=== PATIENT | female | born 1955 | race African-American/Black ===

== ENCOUNTER 2021-10-21 21:42 | Inpatient (IN) ==
[2021-10-21] MEDS ORDERED: Iopamidol - 370 500 ML MLS IVP ONE (22:56)
[2021-10-21] MEDS ORDERED: Morphine Sulfate 2 MG/ML SYRINGE IVP ONE (23:16)
[2021-10-21] MEDS ORDERED: Ondansetron 4 MG/2 ML VIAL IVP ONE (23:16)
[2021-10-21] MEDS ORDERED: 0.9 % Sodium Chloride 1,000 ML IV ONE (23:16)
[2021-10-22 00:16] LABS: Basophils # 0.1 K/mcL (0.0-0.2); Basophils % 0.8 %; Eosinophils # 0.3 K/mcL (0.0-0.6); Eosinophils % 2.2 %; Hematocrit 47.7 % (35.3-44.9); Hemoglobin 15.3 g/dL (11.5-15.4); Immature Granulocytes % 0.6 % (0-4); Lymphocytes # 2.5 K/mcL (0.6-4.6); Lymphocytes % 20.4 %; Mean Corpuscular HGB Conc 32.1 g/dL (31.6-35.5); Mean Corpuscular Hemoglobin 27.9 pg (28.0-33.3); Mean Platelet Volume 9.4 fL (9.4-12.4); Monocytes # 0.9 K/mcL (0.0-1.3); Monocytes % 7.2 %; Neutrophils # 8.3 K/mcL (1.6-8.9); Platelet Count 295 K/mcL (140-400); Red Blood Count 5.48 M/mcL (3.82-4.97); Red Cell Distribution Width 15.6 % (11.5-14.5); Segmented Neutrophils % 68.8 %
[2021-10-22 00:23] LABS: Albumin 4.1 g/dL (3.5-5.7); Bilirubin,Total 0.4 mg/dL (0.3-1.0); Calcium 9.4 mg/dL (8.6-10.3); Globulin 4.1 g/dL (2.4-3.5); Potassium 3.5 mEq/L (3.5-5.1); Total Protein 8.2 g/dL (6.4-8.9)
[2021-10-22 00:57] LABS: Bilirubin,Urine Negative (Negative); Blood,Urine Negative (Negative); Clarity,Urine Clear (Clear); Color,Urine Light-Yellow (Yellow); Glucose,Urine (UA) Normal (Normal); Ketones,Urine Negative (Negative); Leukocyte Esterase,Urine Negative (Negative); Nitrite,Urine Negative (Negative); PH,Urine 6.5 pH Units (5.0-8.0); Protein,Urine Negative (Neg-Trace); Specific Gravity,Urine 1.009 (1.010-1.025); Urobilinogen,Urine Normal (Normal)
[2021-10-22] MEDS ORDERED: Morphine Sulfate 2 MG/ML SYRINGE IVP ONE (03:05)
[2021-10-22] MEDS ORDERED: Ondansetron 4 MG/2 ML VIAL IVP PRN (03:48)
[2021-10-22] MEDS ORDERED: Melatonin 3 MG TABLET PO PRN (03:48)
[2021-10-22] MEDS ORDERED: Naloxone 0.4 MG/ML INJ IVP PRN (03:48)
[2021-10-22] MEDS ORDERED: Dextrose Gel 15 GM/37.5 ML TUBE PO PRN ×2 (03:55)
[2021-10-22] MEDS ORDERED: D5% in Water 1,000 ML IVC PRN (03:55)
[2021-10-22] MEDS ORDERED: *HR* Dextrose 50 % in Water (Syg) 50 ML SYRINGE IVP PRN (03:55)
[2021-10-22] MEDS ORDERED: Ringers Solution, Lactated 1,000 ML IVC SCH ×2 (04:00→05:40)
[2021-10-22 05:56] LABS: Hematocrit 44.3 % (35.3-44.9); Hemoglobin 14.4 g/dL (11.5-15.4); Mean Corpuscular HGB Conc 32.5 g/dL (31.6-35.5); Mean Corpuscular Hemoglobin 28.5 pg (28.0-33.3); Mean Corpuscular Volume 87.7 fL (83.0-100.0); Mean Platelet Volume 9.7 fL (9.4-12.4); Platelet Count 291 K/mcL (140-400); Red Blood Count 5.05 M/mcL (3.82-4.97); Red Cell Distribution Width 15.7 % (11.5-14.5); White Blood Count 9.7 K/mcL (4.3-11.1)
[2021-10-22 06:04] LABS: INR 1.1; Prothrombin Time 11.7 Seconds (9.4-12.1)
[2021-10-22 06:07] LABS: Activated Partial Thrombo Time 35.4 Seconds (26.0-36.0)
[2021-10-22] MEDS ORDERED: Saliva Stimulant 44.3ml BOTTLE PO PRN (06:08)
[2021-10-22 06:15] LABS: Calcium 9.1 mg/dL (8.6-10.3); Phosphorous 3.7 mg/dL (2.7-4.5); Potassium 3.6 mEq/L (3.5-5.1)
[2021-10-22 10:05] LABS: Chol/HDL Ratio 2.3 (0-4.9)
[2021-10-22] MEDS: amLODIPine 5 MG TABLET PO SCH (11:39)
[2021-10-22] MEDS ORDERED: Acetaminophen 325 MG TABLET PO ONE (14:16)
[2021-10-22] MEDS ORDERED: 0.9 % Sodium Chloride 1,000 ML IVC SCH (18:00)
[2021-10-23] MEDS ORDERED: *HR* Enoxaparin 40 MG/0.4 ML SYRINGE SQ SCH (06:00)
[2021-10-23 07:25] LABS: Albumin 3.3 g/dL (3.5-5.7); Bilirubin,Total 0.8 mg/dL (0.3-1.0); Calcium 8.6 mg/dL (8.6-10.3); Globulin 3.2 g/dL (2.4-3.5); Magnesium 1.9 mg/dL (1.6-2.6); Phosphorous 4.2 mg/dL (2.7-4.5); Potassium 4.7 mEq/L (3.5-5.1); Total Protein 6.5 g/dL (6.4-8.9)
[2021-10-23] MEDS: amLODIPine 5 MG TABLET PO SCH (08:03)
[2021-10-23 11:25] VITALS: BP 106/70; PULSE 85; TEMP 98.1; O2SAT 92
== END 2021-10-23 14:06 | disposition home or self-care (01) | DRG 440 ==
LOC: EMEROOARM 21:42 → 3ANU 21:42 → SUATTDRO 10-22 03:37 → 3ANU 10-22 04:38 → SUATTDRO 10-22 10:13
PROVIDERS: ADMIT Internal Medicine; ATTEND Internal Medicine